=== PATIENT | female | born 1955 | race Caucasian/White ===

== ENCOUNTER 2021-05-12 06:38 | Outpatient (REF) | payer BC, SELFPAY ==
[2021-05-12 12:01] LABS: Hematocrit 39.5 % (37-47); Mean Corpuscular HGB Conc 32.9 g/dl (31.0-35.0); Mean Corpuscular Hemoglobin 30.4 pg (27.0-33.0); Mean Corpuscular Volume 92.3 fL (80-98); Mean Platelet Volume 10.4 fL (9.4-12.3); Platelet Count 344 X10*3/uL (160-400); Red Blood Count 4.28 X10*6/uL (4.20-5.50); White Blood Count 4.7 X10*3/uL (4.8-10.8)
[2021-05-12 12:13] LABS: Alanine Aminotransferase 15 U/L (0-31); Albumin Level 4.1 g/dL (3.5-5.0); Alkaline Phosphatase 53 U/L (39-117); Anion Gap 13 (12-20); Aspartate Amino Transferase 20 U/L (5-31); Bilirubin Total 0.6 mg/dL (0.0-1.0); Blood Urea Nitrogen 16 mg/dL (9-16); Calcium 9.6 mg/dL (8.4-10.2); Carbon Dioxide 27 mmol/L (22-29); Chloride 107 mmol/L (96-108); Cholesterol 253 mg/dL; Estimated Glomerular Filt Rate > 60; Glucose Fasting 100 mg/dL (60-99); HDL Cholesterol 57 mg/dL; LDL Cholesterol Calculated 166 mg/dl; Potassium 4.5 mmol/L (3.3-5.1); Sodium 142 mmol/L (135-145); Total Protein 6.8 g/dL (6.5-8.0); Triglycerides 154 mg/dL
[2021-05-12 12:34] LABS: TSH reflex Free T4 1.73 uIU/mL (0.32-4.0)
== END 2021-05-12 06:39 | disposition home or self-care (01) ==
LOC: HO.HMGCLDS 06:38
PROVIDERS: PCP Internal Medicine; Visit Provider Internal Medicine
DX: Z00.00 Encounter for general adult medical examination without abnormal findings (principal); J44.9 Chronic obstructive pulmonary disease, unspecified
CPT/HCPCS: 36415; 80053; 80061; 84443; 85027

== ENCOUNTER 2021-12-10 10:37 | Outpatient (REF) | payer BC, SELFPAY ==
[2021-12-10 12:44] LABS: TSH reflex Free T4 1.53 uIU/mL (0.32-4.0)
[2021-12-10 12:48] LABS: Alanine Aminotransferase 18 U/L (0-31); Albumin Level 4.2 g/dL (3.5-5.0); Alkaline Phosphatase 51 U/L (39-117); Anion Gap 10 (12-20); Aspartate Amino Transferase 19 U/L (5-31); Bilirubin Total 0.3 mg/dL (0.0-1.0); Blood Urea Nitrogen 18 mg/dL (9-16); Calcium 9.8 mg/dL (8.4-10.2); Carbon Dioxide 28 mmol/L (22-29); Chloride 108 mmol/L (96-108); Cholesterol 275 mg/dL; Estimated Glomerular Filt Rate > 60; Glucose Fasting 99 mg/dL (60-99); HDL Cholesterol 54 mg/dL; LDL Cholesterol Calculated 179 mg/dl; Potassium 4.6 mmol/L (3.3-5.1); Sodium 141 mmol/L (135-145); Total Protein 7.4 g/dL (6.5-8.0); Triglycerides 212 mg/dL
== END 2021-12-10 10:38 | disposition home or self-care (01) ==
LOC: HO.HMGCLDS 10:37
PROVIDERS: PCP Internal Medicine; Visit Provider Internal Medicine
DX: E78.5 Hyperlipidemia, unspecified (principal)
CPT/HCPCS: 36415; 80053; 80061; 84443

== ENCOUNTER 2022-01-17 11:51 | Outpatient (REF) | payer BC, SELFPAY ==
[2022-01-17 14:02] LABS: Hematocrit 43.2 % (37.0-47.0); Hemoglobin 14.4 g/dl (12.0-16.0); Mean Corpuscular HGB Conc 33.3 g/dl (31.0-35.0); Mean Corpuscular Hemoglobin 30.4 pg (27.0-33.0); Mean Corpuscular Volume 91.3 fL (80.0-98.0); Mean Platelet Volume 10.4 fL (9.4-12.3); Platelet Count 222 X10*3/uL (160-400); Red Blood Count 4.73 X10*6/uL (4.20-5.50); Red Cell Distribution Width 12.9 % (11.0-16.0); White Blood Count 4.2 X10*3/uL (4.8-10.8)
[2022-01-17 14:23] LABS: Alanine Aminotransferase 31 U/L (0-31); Albumin Level 3.9 g/dL (3.5-5.0); Alkaline Phosphatase 44 U/L (39-117); Anion Gap 17 (12-20); Aspartate Amino Transferase 40 U/L (5-31); Bilirubin Total 0.3 mg/dL (0.0-1.0); Blood Urea Nitrogen 15 mg/dL (9-16); C Reactive Protein 0.31 mg/dL (< or = 0.50); Calcium 9.1 mg/dL (8.4-10.2); Carbon Dioxide 21 mmol/L (22-29); Chloride 104 mmol/L (96-108); Cholesterol 236 mg/dL; Estimated Glomerular Filt Rate > 60; Glucose Random 108 mg/dL (60-115); HDL Cholesterol 45 mg/dL; LDL Cholesterol Calculated 160 mg/dl; Lipase 44 U/L (8-78); Potassium 4.6 mmol/L (3.3-5.1); Sodium 137 mmol/L (135-145); Total Protein 7.5 g/dL (6.5-8.0); Triglycerides 155 mg/dL
== END 2022-01-17 11:52 | disposition home or self-care (01) ==
LOC: HO.HMGCLDS 11:51
PROVIDERS: PCP Internal Medicine; Visit Provider Internal Medicine
DX: R10.9 Unspecified abdominal pain (principal); E78.5 Hyperlipidemia, unspecified
CPT/HCPCS: 36415; 80053; 80061; 83690; 85027; 86140

== ENCOUNTER 2022-01-22 08:20 | Outpatient (REF) | payer BC, SELFPAY ==
--- NOTE | ~2022-01-22 | US_ITS ---
EXAMINATION: US ABDOMEN COMPLETE CLINICAL INFORMATION: Abdominal pain. Rule out cholecystitis. COMPARISON: None TECHNIQUE: Real-time imaging of the abdominal viscera. FINDINGS: PANCREAS: Normal. ABDOMINAL AORTA: The proximal, mid, and distal segments are normal in caliber. INFERIOR VENA CAVA: Visualized portions are normal. LIVER: Liver echotexture is increased. The liver contour is normal. The liver is normal in size.. No focal hepatic lesion. There is no intrahepatic biliary duct dilatation seen. GALLBLADDER: The gallbladder is normal in size. There is ring down artifact from the gallbladder fundus suggestive of adenomyomatosis of the gallbladder wall. No gallstones are seen. Gallbladder wall thickness is normal. There is no pericholecystic fluid. COMMON BILE DUCT: Normal in caliber measuring 0.6 cm in diameter. RIGHT KIDNEY: Normal. No hydronephrosis. No renal calculi or focal parenchymal lesions. The kidney measures 11 cm in maximum dimension. LEFT KIDNEY: Normal. No hydronephrosis. No renal calculi or focal parenchymal lesions. The kidney measures 11.4 cm in maximum dimension. SPLEEN: Normal. The spleen measures 8.4 cm in maximum dimension. FREE FLUID: None. US/US abdomen complete IMPRESSION: Echogenic liver probably representing fatty infiltration. Adenomyomatosis of the gallbladder wall. No gallstones seen.
== END 2022-01-22 08:21 | disposition home or self-care (01) ==
LOC: HO.HMGCX 08:20
PROVIDERS: Visit Provider Internal Medicine
DX: R10.9 Unspecified abdominal pain (principal)
CPT/HCPCS: 76700

== ENCOUNTER 2022-07-12 08:10 | Outpatient (REF) | payer BC, SELFPAY ==
[2022-07-12 11:22] LABS: Appearance Urine Clear; Color Urine Yellow; Glucose Urine UA Negative (Negative); Leukocyte Esterase Urine Trace (Negative); Nitrite Urine Negative (Negative); UMIC TRIGGER UA YES; Urine Blood Small (1+) (Negative); Urine Ketones Negative (Negative); Urine Protein Negative (Neg-Trace)
[2022-07-12 11:27] LABS: MANUAL DIFF FLAG NO
[2022-07-12 11:50] LABS: Bacteria Urine None Seen (None Seen); Hyaline Casts Urine 0-2 /LPF (0-2); Squamous Epithelial Cell Urine 0-2 /HPF (0-2); WBC Urine 0-5 /HPF (0-5)
[2022-07-12 11:51] LABS: Basophils Percent Auto 0.4 % (0-2); Eosinophils Percent Auto 0.7 % (0-4); Hemoglobin 12.6 g/dl (12.0-16.0); Imm Gran Abs Auto 0.02 X10*3/uL (0.00-0.03); Imm Gran Pct Auto 0.4 % (0.0-0.4); Lymphocytes Absolute Auto 2.1 X10*3/uL (1.2-4.9); Lymphocytes Percent Auto 37.9 % (20-40); Mean Corpuscular HGB Conc 33.2 g/dl (31.0-35.0); Mean Corpuscular Hemoglobin 30.6 pg (27.0-33.0); Mean Corpuscular Volume 92.2 fL (80.0-98.0); Mean Platelet Volume 10.4 fL (9.4-12.3); Monocytes Absolute Auto 0.4 X10*3/uL (0.1-1.2); Monocytes Percent Auto 7.8 % (2-11); Neutrophils Absolute Auto 2.9 x10*3/uL (2.0-8.3); Neutrophils Percent Auto 52.8 % (45-73); Platelet Count 312 X10*3/uL (160-400); Red Blood Count 4.12 X10*6/uL (4.20-5.50); Red Cell Distribution Width 13.2 % (11.0-16.0); White Blood Count 5.5 X10*3/uL (4.8-10.8)
[2022-07-12 12:04] LABS: Alanine Aminotransferase 29 U/L (0-31); Albumin Level 4.1 g/dL (3.5-5.0); Alkaline Phosphatase 51 U/L (39-117); Anion Gap 15 (12-20); Aspartate Amino Transferase 26 U/L (5-31); Bilirubin Total 0.5 mg/dL (0.0-1.0); Blood Urea Nitrogen 17 mg/dL (9-16); Calcium 9.8 mg/dL (8.4-10.2); Carbon Dioxide 25 mmol/L (22-29); Chloride 105 mmol/L (96-108); Cholesterol 282 mg/dL; Estimated Glomerular Filt Rate > 60; Glucose Fasting 103 mg/dL (60-99); HDL Cholesterol 47 mg/dL; LDL Cholesterol Calculated 189 mg/dl; Potassium 4.5 mmol/L (3.3-5.1); Sodium 140 mmol/L (135-145); Total Protein 6.9 g/dL (6.5-8.0); Triglycerides 232 mg/dL
[2022-07-12 12:29] LABS: Vitamin D 25-OH Total 25.5 ng/mL (>30)
== END 2022-07-12 08:11 | disposition home or self-care (01) ==
LOC: HO.HMGCLDS 08:10
PROVIDERS: PCP Internal Medicine; Visit Provider Internal Medicine
DX: Z00.00 Encounter for general adult medical examination without abnormal findings (principal); E78.5 Hyperlipidemia, unspecified; J44.9 Chronic obstructive pulmonary disease, unspecified; E55.9 Vitamin D deficiency, unspecified
CPT/HCPCS: 36415; 80053; 80061; 81001; 82306; 85025

== ENCOUNTER 2022-10-04 07:34 | Outpatient (REF) | payer BC, SELFPAY ==
[2022-10-04 12:00] LABS: Cholesterol 299 mg/dL; HDL Cholesterol 41 mg/dL; LDL Cholesterol Calculated 201 mg/dl; Triglycerides 286 mg/dL
== END 2022-10-04 07:35 | disposition home or self-care (01) ==
LOC: HO.HMGCLDS 07:34
PROVIDERS: Visit Provider Internal Medicine
DX: E78.5 Hyperlipidemia, unspecified (principal)
CPT/HCPCS: 36415; 80061

== ENCOUNTER 2022-10-09 07:50 | Outpatient (REF) | payer BC, SELFPAY ==
--- NOTE | ~2022-10-09 | MM_ITS ---
EXAMINATION: MM SCREENING DIGITAL BREAST TOMOSYNTHESIS, BILATERAL CLINICAL INFORMATION: Screening. Asymptomatic. The lifetime risk of breast cancer based on the Tyrer-Cuzick Model is 7%. COMPARISON: Outside mammography: 11/10/2021, 10/21/2020, 10/02/2019 ([facility]). TECHNIQUE: Digital breast tomosynthesis is performed in both the craniocaudal and mediolateral oblique views along with computer-aided detection (CAD). Synthesized 2D images are generated from the tomosynthesis. FINDINGS: There are scattered areas of fibroglandular density (ACR BI-RADS breast composition Category b). There are no significant masses, abnormal calcifications, or other abnormalities. Breast tissue composition borders on predominantly fatty. Background stromal and fibroglandular densities are similar to outside exams. No developing density or interval architectural changes. There is an incidental intramammary node posterior upper outer right breast. MM/MM tomosynthesis screening BI IMPRESSION: No mammographic evidence of malignancy. ASSESSMENT: BI-RADS 2: Benign RECOMMENDATION: Routine annual mammography screening. This patient's information was entered into a reminder system with a target due date for their next mammogram.
== END 2022-10-09 07:51 | disposition home or self-care (01) ==
LOC: HO.MAMMO 07:50
PROVIDERS: PCP Internal Medicine; Visit Provider Internal Medicine
DX: Z12.31 Encounter for screening mammogram for malignant neoplasm of breast (principal)
CPT/HCPCS: 77063; 77067

== ENCOUNTER 2023-01-10 07:42 | Outpatient (REF) | payer BC, SELFPAY ==
[2023-01-10 11:25] LABS: MANUAL DIFF FLAG NO
[2023-01-10 11:39] LABS: Basophils Percent Auto 0.5 % (0-2); Eosinophils Absolute Auto 0.1 X10*3/uL (0.0-0.4); Eosinophils Percent Auto 1.1 % (0-4); Hematocrit 41.3 % (37.0-47.0); Hemoglobin 13.5 g/dl (12.0-16.0); Imm Gran Abs Auto 0.01 X10*3/uL (0.00-0.03); Imm Gran Pct Auto 0.2 % (0.0-0.4); Lymphocytes Absolute Auto 2.2 X10*3/uL (1.2-4.9); Lymphocytes Percent Auto 35.8 % (20-40); Mean Corpuscular HGB Conc 32.7 g/dl (31.0-35.0); Mean Corpuscular Hemoglobin 30.6 pg (27.0-33.0); Mean Corpuscular Volume 93.7 fL (80.0-98.0); Mean Platelet Volume 10.3 fL (9.4-12.3); Monocytes Absolute Auto 0.5 X10*3/uL (0.1-1.2); Monocytes Percent Auto 8.1 % (2-11); Neutrophils Absolute Auto 3.4 x10*3/uL (2.0-8.3); Neutrophils Percent Auto 54.3 % (45-73); Platelet Count 338 X10*3/uL (160-400); Red Blood Count 4.41 X10*6/uL (4.20-5.50); Red Cell Distribution Width 12.8 % (11.0-16.0); White Blood Count 6.2 X10*3/uL (4.8-10.8)
[2023-01-10 11:52] LABS: Estimated Average Glucose 111 mg/dL; Hemoglobin A1c % 5.5 %
[2023-01-10 12:39] LABS: Alanine Aminotransferase 25 U/L (0-31); Alkaline Phosphatase 56 U/L (39-117); Anion Gap 14 (12-20); Aspartate Amino Transferase 20 U/L (5-31); Bilirubin Total 0.5 mg/dL (0.0-1.0); Blood Urea Nitrogen 14 mg/dL (9-16); Calcium 9.5 mg/dL (8.4-10.2); Carbon Dioxide 25 mmol/L (22-29); Chloride 109 mmol/L (96-108); Cholesterol 289 mg/dL; Estimated Glomerular Filt Rate > 60; Glucose Fasting 110 mg/dL (60-99); HDL Cholesterol 41 mg/dL; LDL Cholesterol Calculated 183 mg/dl; Potassium 4.5 mmol/L (3.3-5.1); Sodium 143 mmol/L (135-145); Total Protein 6.8 g/dL (6.5-8.0); Triglycerides 329 mg/dL
[2023-01-10 13:03] LABS: TSH reflex Free T4 3.58 uIU/mL (0.32-4.0); Vitamin D 25-OH Total 41.8 ng/mL (>30)
== END 2023-01-10 07:43 | disposition home or self-care (01) ==
LOC: HO.HMGCLDS 07:42
PROVIDERS: PCP Internal Medicine; Visit Provider Internal Medicine
DX: Z00.00 Encounter for general adult medical examination without abnormal findings (principal); R73.9 Hyperglycemia, unspecified; E78.5 Hyperlipidemia, unspecified; E55.9 Vitamin D deficiency, unspecified
CPT/HCPCS: 36415; 80053; 80061; 82306; 83036; 84443; 85025

== ENCOUNTER 2023-04-10 06:47 | Outpatient (REF) | payer MEDICARE, SELFPAY ==
[2023-04-10 11:50] LABS: Alanine Aminotransferase 26 U/L (0-31); Albumin Level 3.8 g/dL (3.5-5.0); Alkaline Phosphatase 49 U/L (39-117); Anion Gap 13 (12-20); Aspartate Amino Transferase 20 U/L (5-31); Bilirubin Total 0.5 mg/dL (0.0-1.0); Blood Urea Nitrogen 13 mg/dL (9-16); Calcium 9.4 mg/dL (8.4-10.2); Carbon Dioxide 23 mmol/L (22-29); Chloride 110 mmol/L (96-108); Cholesterol 172 mg/dL; Estimated Glomerular Filt Rate > 60; Glucose Fasting 110 mg/dL (60-99); HDL Cholesterol 45 mg/dL; LDL Cholesterol Calculated 82 mg/dl; Potassium 4.3 mmol/L (3.3-5.1); Sodium 142 mmol/L (135-145); Triglycerides 227 mg/dL
== END 2023-04-10 06:48 | disposition home or self-care (01) ==
LOC: HO.HMGCLDS 06:47
PROVIDERS: PCP Internal Medicine; Visit Provider Internal Medicine
DX: R73.9 Hyperglycemia, unspecified (principal); E78.5 Hyperlipidemia, unspecified
CPT/HCPCS: 36415; 80053; 80061

== ENCOUNTER 2023-04-14 10:31 | Outpatient (AMB) | payer BC, SELFPAY ==
--- NOTE | 2023-04-14 10:54 | A.OFFPC_ITS ---
Vital Signs 04/14/23 10:56 Height 5 ft Weight 180 lb BMI 35.2 BP 118/74 Blood Pressure Location Lt brachial Position Sitting Pulse 75 Pulse Source Pulse Oximeter Pulse Oximetry (%) 99 Oxygen Delivery Method Room Air Intake Visit Reasons: 3 Month Follow up Hyperlipidemia Intake Note: Pt is here today for 3 months follow up visit. Pt states that her feet are swelling after starting cholesterol medication. Allergies simvastatin Adverse Reaction (Intermediate, Verified 04/14/23 10:59) myalgia crestor Adverse Reaction (Intermediate, Uncoded 04/14/23 10:59) leg swelling Medication List - Last Reconciled 04/14/23 by Ghazala Aparicio MD alirocumab (Praluent Pen) 75 mg subcut Q14D ezetimibe (Zetia) 10 mg PO DAILY simvastatin 20 mg PO DAILY Tobacco use date assessed: 04/14/23 Fall risk assessment: No Falls in past year Last assessed Fall Risk: 04/14/23 Dental Screening Dental Screen Date: 04/14/23 Did you have a dental visit in the last 12 months?: Yes Did you have a dental problem in the last 6 months where you did not have access to dental care?: No Was dental information given to patient?: Patient has dentist HPI 3 Month Follow up Hyperlipidemia HPI Details Pt presents for hyperlipid, stable on meds. Patient complains of chronic lower extremity edema. She had a venous insufficiency surgery without significant improvement. Patient denies chest pain shortness of breath palpitations. [facility] Medical History Abdominal pain Annual physical exam COPD (chronic obstructive pulmonary disease) Furunculosis Hyperlipidemia Lung nodule Mammogram normal Normal colonoscopy Normal Pap smear Varicose vein of leg Family History (Updated 01/13/23 @ 11:32 by Ana Ruiz Kwan) Father Cancer Mother No problems noted. Social History Housing: House Alcohol intake: current Alcohol intake frequency: a few times a week Patient Tobacco Use Status: Former Tobacco user e-Cigarette/Vaping Use: Never Used Second Hand Smoke Exposure: No service: No Current occupational status: employed Cognitive needs: No Hearing needs: No Vision needs: No Questionnaire Thrive Questionnaire Date Thrive assessed: 01/13/23 Currently or been in a relationship where the following occur: I choose not to answer this question AUDIT C Alcohol Use Questionnaire (AUDIT-C) 1. How often do you have a drink containing alcohol?: Monthly or less 2. How many drinks containing alcohol do you have on a typical day when you are drinking?: 1 or 2 3. How often do you have six or more drinks on one occasion?: Never Total Score: 1 CESAR-7 AMB Questionnaire CESAR-7 Date CESAR - 7 assessed: 01/13/23 Source: Developed by Drs. Jaskaran Brown, Helene June, Refugio Love and colleagues, with an educational buddy from [employer]. Review of Systems Const All systems reviewed & are unremarkable except as noted in HPI and below Reports no additional complaints Eyes Reports no additional complaints ENT Reports no additional complaints Card Reports no additional complaints Resp Reports no additional complaints GI Reports no additional complaints Physical exam (Primary Care) Vital Signs: Last Vital Signs Pulse 75 04/14/23 10:56 BP 118/74 04/14/23 10:56 Pulse Ox 99 04/14/23 10:56 Oxygen Delivery Method Room Air 04/14/23 10:56 BMI result Body Mass Index 35.2 Tobacco/Smoking Status: Tobacco use Status Tobacco use date assessed 04/14/23 04/14/23 11:05 Patient Tobacco Use Status Former Tobacco user 04/14/23 10:55 e-Cigarette/Vaping Use Never Used 04/14/23 10:55 Thrive Assessment: Date of Thrive Assessment Date Thrive assessed 01/13/23 04/14/23 10:55 Currently or been in a relationship where the following occur: I choose not to answer this question Const General: no acute distress HENMT Head: Yes normal to inspection Neck Neck: Yes supple Resp Auscultation: clear to auscultation bilaterally Cardio Rhythm: regular rhythm Heart sounds: S1 normal heart sound present and S2 normal heart sound present GI Inspection: Yes normal to inspection Palpation (GI): Soft to palpation Percussion: Yes normal to percussion Auscultation: normal bowel sounds Extrem Other: 3+ nonpitting edema bilaterally Assessment and Plan Assessment & Plan (1) Hyperglycemia: Code(s): R73.9 - Hyperglycemia, unspecified Plan: cont ADA diet, weight loss, f/u 3 mths with labs (2) Hyperlipidemia: Code(s): E78.5 - Hyperlipidemia, unspecified Plan: cont Simvatin and Zetia (3) Varicose vein of leg: Comment: s/p endovascular venous closure 2017 bilaterally Code(s): I83.90 - Asymptomatic varicose veins of unspecified lower extremity (4) Edema: Code(s): R60.9 - Edema, unspecified Plan: check ECHO , start Lasix 20 mg 2 x a week, comprression knee highs Orders: Orders B Type Natriuretic Peptide 3 Months E78.5 - Hyperlipidemia, unspecified, I83.90 - Asymptomatic varicose veins of unspecified lower extremity, R60.9 - Edema, unspecified, R73.9 - Hyperglycemia, unspecified Comprehensive [place]. Panel Fast 3 Months E78.5 - Hyperlipidemia, unspecified, I83.90 - Asymptomatic varicose veins of unspecified lower extremity, R60.9 - Edema, unspecified, R73.9 - Hyperglycemia, unspecified Hemoglobin A1c 3 Months E78.5 - Hyperlipidemia, unspecified, I83.90 - Asymptomatic varicose veins of unspecified lower extremity, R60.9 - Edema, unspecified, R73.9 - Hyperglycemia, unspecified Lipid Panel 3 Months E78.5 - Hyperlipidemia, unspecified, I83.90 - Asymptomatic varicose veins of unspecified lower extremity, R60.9 - Edema, unspecified, R73.9 - Hyperglycemia, unspecified TSH reflex Free T4 3 Months E78.5 - Hyperlipidemia, unspecified, I83.90 - Asymptomatic varicose veins of unspecified lower extremity, R60.9 - Edema, unspecified, R73.9 - Hyperglycemia, unspecified Microalbumin, Random (w Creat) 3 Months E78.5 - Hyperlipidemia, unspecified, I83.90 - Asymptomatic varicose veins of unspecified lower extremity, R60.9 - Edema, unspecified, R73.9 - Hyperglycemia, unspecified CA echo transthoracic complete Today R60.9 - Edema, unspecified Medications: New furosemide (Lasix) 20 mg PO Q OTHER DAY 30 tabs 2RF Discontinued alirocumab (Praluent Pen) Discontinued Reason: Doctor's Order 75 mg subcut Q14D 2 mL 3RF Coding Level of Care Code Est Pt Level 4 (19353) Diagnoses Hyperglycemia R73.9 Hyperlipidemia E78.5 Varicose vein of leg I83.90 Edema R60.9
[2023-04-14 10:56] VITALS: BP 118/74; PULSE 75; O2SAT 99; BMI 35.2
== END 2023-04-14 11:46 | disposition home or self-care (01) ==
PROVIDERS: Visit Provider Internal Medicine
DX: R73.9 Hyperglycemia, unspecified (principal); E78.5 Hyperlipidemia, unspecified; I83.90 Asymptomatic varicose veins of unspecified lower extremity; R60.9 Edema, unspecified
CPT/HCPCS: 99214

== ENCOUNTER → 2023-05-14 10:31 | Outpatient (REF) | payer MEDICARE, SELFPAY ==
--- NOTE | 2023-05-14 10:33 | CA_ITS ---
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 Left Ventricle Normal left ventricular size, thickness, and systolic function. The visually estimated ejection fraction is between 60-65%. Spectral Doppler is indicative of a normal filling pattern. Right Ventricle Normal right ventricular cavity size and systolic function. Atria Both atria are normal in size. Interatrial shunt cannot be excluded. Aortic Valve The aortic valve structure and function is likely normal. There is no aortic valve stenosis. There is no aortic valve regurgitation. Mitral Valve Normal mitral valve structure and function. There is trace mitral valve regurgitation. There is no mitral valve stenosis. Pulmonic Valve The pulmonic valve is likely normal. Tricuspid Valve Likely normal tricuspid valve structure and function. Tricuspid regurgitation envelope is inadequate for calculation of right ventricular systolic pressure. Normal right atrial pressure. Great Vessels All visible segments of the aorta are normal in size. The pulmonary artery was not well visualized. Venous The inferior vena cava is normal in size and collapses greater than 50% with inspiration. Pericardium/Pleural There is no evidence of pericardial effusion. Prior Study Comparison No prior study available for comparison. Measurements 2D Linear Measurements IVSd: 0.80 0.6-0.9/0.6-1.0 cm LVIDd: 4.10 3.9-5.3/4.2-5.9 cm LVIDd Index: 2.36 2.4-3.2/2.2-3.1 cm/m2 LVIDs: 2.70 2.0-3.6 cm LVPWd: 0.70 0.7-1.1 cm LA Diam: 2.60 2.7-3.8/3.0-4.0 cm LAIDs Index: 1.49 1.5-2.3 cm/m2 LV Mass: 110.96 67-162/88-224 g LV Mass Index: 63.77 43-95/49-115 g/m2 LVOT Diam: 2.10 3.0+(-)1.3 cm 2D Systolic Function EF 4C: 62.60 >55% Mitral Valve MV Pk E: 0.48 MV PK A: 0.49 MV Decel Time: 179.00 E/A: 1.00 E'Lateral: 9.14 E'Medial: 6.42 E/E' Med: 7.50 E/E' Lat: 5.30 PHT: 52.00 MVA PHT: 4.23 Decel [place]: 2.68 Aortic Valve AoV Pk Anibal: 1.39 AoV Mn Anibal: 0.97 AoV VTI: 0.29 AoV Pk Grad: 8.00 Aov Mn Grad: 4.00 KAY Cont.VTI: 1.94 LVOT LVOT Pk Anibal: 0.76 LVOT Mn Anibal: 0.54 LVOT VTI: 0.16 LVOT Pk Grad: 2.00 LVOT Mn Grad: 1.00 LVOT Diam: 2.10 LVOT Area: 3.46 Diastolic Function MV Pk E: 0.48 MV Pk A: 0.49 E/A: 1.00 E'Medial: 6.42 E/E' Med: 7.50 E' Laterial: 9.14 E/E' Lat: 5.30 Right Ventricle TAPSE (mm): 19.10 TVS' Anibal: 9.79 Tricuspid Valve RA Press: 3.00 Great Vessels Aorta Sinus of Valsalva: 3.00 2.0-3.5 cm Ao Asc: 3.10 2.1-3.4 cm Updated in Other Vendor System with Status of Final Trent Gonzales MD electronically signed on 05/14/2023 12:40:12 PM with status of Final
== END ==
LOC: HO.CARD 10:31
PROVIDERS: PCP Internal Medicine; Visit Provider Internal Medicine
DX: R60.9 Edema, unspecified (principal)
CPT/HCPCS: 93306

== ENCOUNTER → 2023-05-14 10:33 | Outpatient (BNV) | payer MEDICARE, SELFPAY | PROVIDERS: PCP Internal Medicine; Visit Provider Internal Medicine Cardiovascular Disease | DX: R60.9 Edema, unspecified (principal) | CPT/HCPCS: 93306 ==

== ENCOUNTER 2023-07-18 07:57 | Outpatient (REF) | payer MEDICARE, SELFPAY ==
[2023-07-18 11:55] LABS: Estimated Average Glucose 111 mg/dL; Hemoglobin A1c % 5.5 % (<6.0)
[2023-07-18 11:59] LABS: B Type Natriuretic Peptide 39 pg/mL (<100)
[2023-07-18 12:16] LABS: Alanine Aminotransferase 21 U/L (0-31); Alkaline Phosphatase 57 U/L (39-117); Anion Gap 12 (12-20); Aspartate Amino Transferase 25 U/L (5-31); Bilirubin Total 0.6 mg/dL (0.0-1.0); Blood Urea Nitrogen 15 mg/dL (9-16); Calcium 9.3 mg/dL (8.4-10.2); Carbon Dioxide 26 mmol/L (22-29); Chloride 109 mmol/L (96-108); Cholesterol 269 mg/dL (<200); Estimated Glomerular Filt Rate > 60; Glucose Fasting 113 mg/dL (60-99); HDL Cholesterol 52 mg/dL (>40); LDL Cholesterol Calculated 185 mg/dL (<100); Potassium 4.5 mmol/L (3.3-5.1); Sodium 142 mmol/L (135-145); Total Protein 7.2 g/dL (6.5-8.0); Triglycerides 160 mg/dL (<150)
[2023-07-18 12:31] LABS: Creatinine Urine 235.85 mg/dL; Microalbum/Creatinine Ratio Ur 5.9 ug/mg cr (<30)
== END 2023-07-18 07:58 | disposition home or self-care (01) ==
LOC: HO.HMGCLDS 07:57
PROVIDERS: PCP Internal Medicine; Visit Provider Internal Medicine
DX: R73.9 Hyperglycemia, unspecified (principal); I83.90 Asymptomatic varicose veins of unspecified lower extremity; R60.9 Edema, unspecified; E78.5 Hyperlipidemia, unspecified
CPT/HCPCS: 36415; 80053; 80061; 82043; 82570; 83036; 83880; 84443

== ENCOUNTER 2023-07-23 11:14 | Outpatient (AMB) | payer BC, SELFPAY ==
--- NOTE | 2023-07-23 11:17 | A.OFFPC_ITS ---
Vital Signs 07/23/23 11:19 Height 5 ft Weight 180 lb BMI 35.2 BP 110/80 Blood Pressure Location Lt brachial Position Sitting Pulse 79 Pulse Source Pulse Oximeter Pulse Oximetry (%) 98 Oxygen Delivery Method Room Air Intake Visit Reasons: Annual PE Allergies simvastatin Adverse Reaction (Intermediate, Verified 07/23/23 11:19) myalgia crestor Adverse Reaction (Intermediate, Uncoded 07/23/23 11:19) leg swelling Medication List - Last Reconciled 07/23/23 by Ghazala Aparicio MD ezetimibe (Zetia) 10 mg PO DAILY furosemide (Lasix) 20 mg PO Q OTHER DAY scopolamine base 1 patch transdermal Q3D PRN simvastatin 20 mg PO DAILY Tobacco use date assessed: 04/14/23 HPI Annual PE HPI Details Pt presents for PE. Patient is going on a cruise in [place] [facility] Medical History Abdominal pain Hyperlipidemia Furunculosis Annual physical exam Normal colonoscopy Mammogram normal Normal Pap smear Varicose vein of leg COPD (chronic obstructive pulmonary disease) Lung nodule Family History Father Cancer Mother No problems noted. Social History Housing: House Alcohol intake: current Alcohol intake frequency: a few times a week Patient Tobacco Use Status: Former Tobacco user e-Cigarette/Vaping Use: Never Used Second Hand Smoke Exposure: No service: No Current occupational status: employed Cognitive needs: No Hearing needs: No Vision needs: No Questionnaire Thrive Questionnaire Date Thrive assessed: 01/13/23 CESAR-7 AMB Questionnaire CESAR-7 Date CESAR - 7 assessed: 01/13/23 Source: Developed by Drs. Jaskaran Brown, Helene June, Refugio Love and colleagues, with an educational buddy from [employer]. Review of Systems Const All systems reviewed & are unremarkable except as noted in HPI and below Reports no additional complaints Eyes Reports no additional complaints ENT Reports no additional complaints Card Reports no additional complaints Resp Reports no additional complaints GI Reports no additional complaints Reports no additional complaints Physical exam (Primary Care) Vital Signs: Last Vital Signs Pulse 79 07/23/23 11:19 BP 110/80 07/23/23 11:19 Pulse Ox 98 07/23/23 11:19 Oxygen Delivery Method Room Air 07/23/23 11:19 BMI result Body Mass Index 35.2 Tobacco/Smoking Status: Tobacco use Status Tobacco use date assessed 04/14/23 07/23/23 11:18 Patient Tobacco Use Status Former Tobacco user 07/23/23 11:18 e-Cigarette/Vaping Use Never Used 07/23/23 11:18 Thrive Assessment: Date of Thrive Assessment Date Thrive assessed 01/13/23 07/23/23 11:18 Const General: no acute distress HENMT Head: Yes normal to inspection Ears: hearing grossly normal bilaterally Face and sinus: Yes normal facial exam Eyes General: appearance normal, both eyes and all related structures Neck Neck: Yes no lymphadenopathy and Yes supple Resp Effort & Inspection: normal respiratory effort Auscultation: clear to auscultation bilaterally Cardio Rhythm: regular rhythm Heart sounds: S1 normal heart sound present and S2 normal heart sound present GI Inspection: Yes normal to inspection Palpation (GI): Soft to palpation Percussion: Yes normal to percussion Auscultation: normal bowel sounds Assessment and Plan Assessment & Plan (1) Hyperglycemia: Code(s): R73.9 - Hyperglycemia, unspecified Plan: A1c is 5.5, continue ADA diet regular physical activity and follow-up in 6 months with a fasting labs including A1c (2) Hyperlipidemia: Code(s): E78.5 - Hyperlipidemia, unspecified Plan: Patient was advised to restart Zetia and simvastatin, check lipid profile in 6 months (3) Annual physical exam: Code(s): Z00.00 - Encounter for general adult medical examination without abnormal findings Plan: Well-balanced diet regular physical activity discussed with the patient . she is up-to-date with mammogram and colonoscopy Orders: Orders Complete Blood Count Auto Diff 6 Months E78.5 - Hyperlipidemia, unspecified, R73.9 - Hyperglycemia, unspecified, Z00.00 - Encounter for general adult medical examination without abnormal findings Lipid Panel 6 Months E78.5 - Hyperlipidemia, unspecified, R73.9 - Hyperglycemia, unspecified, Z00.00 - Encounter for general adult medical examination without abnormal findings Comprehensive [place]. Panel Fast 6 Months E78.5 - Hyperlipidemia, unspecified, R73.9 - Hyperglycemia, unspecified, Z00.00 - Encounter for general adult medical examination without abnormal findings Hemoglobin A1c 6 Months E78.5 - Hyperlipidemia, unspecified, R73.9 - Hyperglycemia, unspecified, Z00.00 - Encounter for general adult medical examination without abnormal findings TSH reflex Free T4 6 Months E78.5 - Hyperlipidemia, unspecified, R73.9 - Hyperglycemia, unspecified, Z00.00 - Encounter for general adult medical examination without abnormal findings Medications: New scopolamine base 1 patch transdermal Q3D PRN 4 ea 1RF nausea and vomiting Refilled ezetimibe (Zetia) 10 mg PO DAILY 90 tabs 3RF simvastatin 20 mg PO DAILY 90 tabs 3RF Coding Level of Care Code Est Pt Prev Care >65y(66237) Diagnoses Hyperglycemia R73.9 Hyperlipidemia E78.5 Annual physical exam Z00.00
[2023-07-23 11:19] VITALS: BP 110/80; PULSE 79; O2SAT 98; BMI 35.2
== END 2023-07-23 12:20 | disposition home or self-care (01) ==
PROVIDERS: Visit Provider Internal Medicine
DX: R73.9 Hyperglycemia, unspecified (principal); E78.5 Hyperlipidemia, unspecified; Z00.00 Encounter for general adult medical examination without abnormal findings
CPT/HCPCS: 99397

== ENCOUNTER 2024-01-07 10:46 | Outpatient (AMB) | payer MEDICARE, SELFPAY ==
--- NOTE | 2024-01-07 10:47 | MHC.PC.OV ---
Vital Signs 01/07/24 10:48 Height 5 ft Weight 185 lb BMI 36.1 BP 104/66 Blood Pressure Location Lt brachial Position Sitting Pulse 84 Pulse Source Pulse Oximeter Pulse Oximetry (%) 98 Oxygen Delivery Method Room Air Intake Visit Reasons: Shingles? Intake Note: Pt is here today for a sick visit. Pt c/o rash on her L side of her face that is painful. Allergies simvastatin Adverse Reaction (Intermediate, Verified 01/07/24 10:52) myalgia crestor Adverse Reaction (Intermediate, Uncoded 01/07/24 10:52) leg swelling Medication List - Last Reconciled 01/07/24 by Ghazala Aparicio MD ezetimibe (Zetia) 10 mg PO DAILY furosemide (Lasix) 20 mg PO Q OTHER DAY scopolamine base 1 patch transdermal Q3D PRN simvastatin 20 mg PO DAILY valacyclovir (Valtrex) 1,000 mg PO Q8H 10 days Tobacco use date assessed: 01/07/24 Fall risk assessment: No Falls in past year Last assessed Fall Risk: 01/07/24 Dental Screening Dental Screen Date: 01/07/24 Did you have a dental visit in the last 12 months?: Yes Did you have a dental problem in the last 6 months where you did not have access to dental care?: No Was dental information given to patient?: Patient has dentist HPI Shingles? HPI Details Patient complains of a painful rash on the left side of scalp, forehead, left side of the nose for 2 days. Patient complains of left eye irritation but denies any change in the vision. PFSH Medical History Abdominal pain Hyperlipidemia Furunculosis Annual physical exam Normal colonoscopy Mammogram normal Normal Pap smear Varicose vein of leg COPD (chronic obstructive pulmonary disease) Lung nodule Family History Father Cancer Mother No problems noted. Social History Housing: House Alcohol intake: current Alcohol intake frequency: a few times a week Patient Tobacco Use Status: Former Tobacco user e-Cigarette/Vaping Use: Never Used Second Hand Smoke Exposure: No service: No Current occupational status: employed Cognitive needs: No Hearing needs: No Vision needs: No Questionnaire Thrive Questionnaire Date Thrive assessed: 01/13/23 AUDIT C Alcohol Use Questionnaire (AUDIT-C) 1. How often do you have a drink containing alcohol?: Monthly or less 2. How many drinks containing alcohol do you have on a typical day when you are drinking?: 1 or 2 3. How often do you have six or more drinks on one occasion?: Never Total Score: 1 CESAR-7 AMB Questionnaire CESAR-7 Date CESAR - 7 assessed: 01/13/23 Source: Developed by Drs. Jaskaran Brown, Helene June, Refugio Love and colleagues, with an educational buddy from [employer]. Review of Systems Const All systems reviewed & are unremarkable except as noted in HPI and below Eyes Reports no additional complaints ENT Reports no additional complaints Card Reports no additional complaints Resp Reports no additional complaints GI Reports no additional complaints Physical exam (Primary Care) Vital Signs: Last Vital Signs Pulse 84 01/07/24 10:48 BP 104/66 01/07/24 10:48 Pulse Ox 98 01/07/24 10:48 Oxygen Delivery Method Room Air 01/07/24 10:48 BMI result Body Mass Index 36.1 Tobacco/Smoking Status: Tobacco use Status Tobacco use date assessed 01/07/24 01/07/24 10:53 Patient Tobacco Use Status Former Tobacco user 01/07/24 10:53 e-Cigarette/Vaping Use Never Used 01/07/24 10:53 Thrive Assessment: Date of Thrive Assessment Date Thrive assessed 01/13/23 01/07/24 10:53 Const General: no acute distress HENMT Other: Erythematous raised rash on the left forehead, parietal scalp, left side of the nose, injected left conjunctiva, left pupil reactive to light Mouth: Normal oral and palatal mucosa present Throat: Yes posterior oropharynx normal Neck Neck: Yes supple Resp Effort & Inspection: normal respiratory effort Auscultation: clear to auscultation bilaterally Cardio Rhythm: regular rhythm Heart sounds: S1 normal heart sound present and S2 normal heart sound present Assessment and Plan Assessment & Plan (1) Zoster: Code(s): B02.9 - Zoster without complications Plan: Valtrex 1 g Q 8 for 10 days is prescribed . patient was advised to call block handler as soon as possible for left eye examination to evaluate for the need of steroid eye drop Medications: New valacyclovir (Valtrex) 1,000 mg PO Q8H 30 tabs 0RF 10 days Coding Level of Care Code Est Pt Level 3 (53490) Diagnoses Zoster B02.9
[2024-01-07 10:48] VITALS: BP 104/66; PULSE 84; O2SAT 98; BMI 36.1
== END 2024-01-07 11:45 | disposition home or self-care (01) ==
PROVIDERS: PCP Internal Medicine; Visit Provider Internal Medicine
DX: B02.9 Zoster without complications (principal)
CPT/HCPCS: 99213

== ENCOUNTER 2024-01-09 18:08 | Emergency (ER) | payer MEDICARE, SELFPAY ==
[2024-01-09 18:16] VITALS: BP 146/84; BP 147/77; PULSE 70; PULSE 86; RESP 18; TEMP 36.8; O2SAT 97; O2SAT 98; BMI 25.7
--- NOTE | 2024-01-09 18:38 | ED.NAVMDI ---
HPI - Nausea/Vomiting/Diarrhea General Chief complaint: Nausea/Vomiting/Diarrhea Stated complaint: nausea after taking shingles meds Time Seen by Provider: 01/09/24 18:15 Source: patient and family (Son) Mode of arrival: ambulatory History of Present Illness HPI Narrative: 68-year-old female arrives for complaints of nausea, she has received an outpatient prescription for this medication but is not picked up yet, patient was diagnosed 2 days ago with herpes zoster and started on valacyclovir, she denies any rash, difficulty breathing or swallowing but reports that she is having intermittent blurry vision in the left eye and reports that she did follow-up with the eye doctor who did not dilate her eye but did perform a slit-lamp examination and started her on steroid eyedrops. Related Data Previous Rx's ?Medication ?Instructions ?Recorded furosemide 20 mg tablet (Lasix) 20 mg PO Q OTHER DAY #30 tabs 04/14/23 scopolamine base 1 mg over 3 days 1 patch transdermal Q3D PRN nausea 07/23/23 transdermal patch and vomiting #4 ea simvastatin 20 mg tablet 20 mg PO DAILY #90 tabs 07/23/23 ezetimibe 10 mg tablet (Zetia) 10 mg PO DAILY #90 tabs 12/30/23 valacyclovir 1 gram tablet 1,000 mg PO Q8H 10 days #30 tabs 01/07/24 (Valtrex) ondansetron HCl 4 mg tablet 4 mg PO BID PRN nausea and 01/09/24 vomiting #10 tabs Allergies Allergy/AdvReac Type Severity Reaction Status Date / Time simvastatin AdvReac Intermediate myalgia Verified 01/09/24 18:19 crestor AdvReac Intermediate leg Uncoded 01/07/24 10:52 swelling Review of Systems Review of Systems: Pertinent positives and negatives as stated in HPI PMFSH Past Medical History Source: nursing notes reviewed Medical History Abdominal pain Hyperlipidemia Furunculosis Annual physical exam Normal colonoscopy Mammogram normal Normal Pap smear Varicose vein of leg COPD (chronic obstructive pulmonary disease) Lung nodule Family History Family History Father Cancer Mother No problems noted. Social History Social History Housing: House Alcohol intake: current Alcohol intake frequency: a few times a week Patient Tobacco Use Status: Former Tobacco user e-Cigarette/Vaping Use: Never Used Second Hand Smoke Exposure: No Advance Directives: No Advance Directives Information Provided: No Do you have a plan to hurt others: No Plan service: No Current occupational status: employed Cognitive needs: No Hearing needs: No Vision needs: No Physical Exam Vital Signs: Vital Signs: Last Vital Signs Temp 98.1 F 01/09/24 20:39 Pulse 66 01/09/24 20:39 Resp 18 01/09/24 20:39 BP 150/72 H 01/09/24 20:39 Pulse Ox 97 01/09/24 20:39 O2 Del Method Room Air 01/09/24 20:39 BMI result Body Mass Index 25.7 VITAL SIGNS: Reviewed. GENERAL: Well developed, well nourished, in no acute distress. HEAD: Normocephalic/noted rash to V1 distribution of scalp/forehead/bridge of nose EYES: PERRLA, EOMI, there is mild edema noted to the upper/lower eyelid with conjunctival injection VISUAL ACUITY: BOTH-20/70, OD-20/50, OS-20/50 IOP: Patient adamantly refuses FLUORESCEIN STAIN: THERE IS NO UPTAKE EARS: Ext canals without abnormality NOSE: Nares patent bilateral OROPHARYNX: no oral lesions noted, posterior pharynx clear NECK: Supple, no adenopathy LUNGS: Normal breath sounds. No adventitious sounds or accessory muscle use. CARDIOVASCULAR: Regular rate and rhythm without noted murmurs ABDOMEN: Soft, non-tender, non-distended with bowel sounds. MUSCULOSKELETAL: No tenderness, deformities, or effusions noted on gross inspection. EXTREMITIES: No cyanosis, clubbing or edema. SKIN: Inspection of the skin reveals no rashes NEUROLOGIC: Alert and oriented x 4. Strength and sensation to light touch were grossly intact x 4. Medications Administered Discontinued Medications Generic Name Dose Route Start Last Admin Trade Name Freq PRN Reason Stop Dose Admin Acetaminophen 650 mg 01/09/24 20:11 01/09/24 20:18 Acetaminophen 325 Mg Tablet PO 01/09/24 20:12 650 mg ONCE ONE Administration Fluorescein Sodium 1 strip 01/09/24 18:45 01/09/24 19:05 Fluorescein Sodium Strip EYE-LEFT 05/03/24 18:46 1 strip ONCE ONE Administration Ondansetron HCl 4 mg 01/09/24 18:35 01/09/24 19:21 Ondansetron Odt 4 Mg Tab.Andrew TIMMONS 01/09/24 18:36 4 mg ONCE ONE Administration Medical Decision Making Medical Decision Making [facility] Narrative: 68-year-old female who has nausea that she feels is associated with medication for the herpes zoster although she has not taken any of the antinausea medication that she was prescribed today. The eye doctor that she saw has started her on steroid eyedrops, she adamantly refuses assessment for intra-ocular pressure, fluorescein exam does not show uptake, patient received Zofran and on re-evaluation reports improvement of her nausea, she was instructed to continue the shingles medication every 8 hours and given instructions on taking the antinausea medication prior to the scheduled times. She was also instructed to follow-up with her eye doctor for re-evaluation. I briefly discussed the case with Dr. Coffey who pointed out that the nausea could be associated with increase in intra-ocular pressure that patient adamantly refused to have completed. Therefore, in lieu complete examination are recommendation is for her to follow-up with her eye doctor within the next 24-48 hours. There is no evidence to suggest an allergic reaction. Differential Diagnosis Differential Diagnoses: The differential diagnosis associated with the presentation includes Please see the discussion above Admission/Observation Consideration of admission/observation: Escalation of care including admission/observation considered Please see the discussion above Consult Healthcare Provider Management of the patient was discussed with: Bottled Beverage Inspector Please see the discussion above Critical Care Time Critical Care Time Critical Care Time: Yes Total Critical Care Time: 30 Attestation: I personally attest to this time spent taking care of the patient. Discharge Plan Discharge Clinical Impression: Herpes zoster Patient Disposition: Home, Self-Care Instructions: Shingles (ED) Additional Instructions: 1. Resume all home medications as prescribed. 2. I recommend that you use the nausea medication approximately 30 minutes prior to the shingles medication, you should resume the 3 times a day regimen for the shingles medication (Valtrex/valacyclovir). 3. You need to follow-up with your eye doctor within the next 1-2 days. Please get your eye re-evaluated at that time. Return to the ER for any worsening symptoms. Prescriptions: No Action ezetimibe [Zetia] 10 mg tablet 10 mg PO DAILY Qty: 90 3RF ondansetron HCl 4 mg tablet 4 mg PO BID PRN (Reason: nausea and vomiting) Qty: 10 0RF furosemide [Lasix] 20 mg tablet 20 mg PO Q OTHER DAY Qty: 30 2RF scopolamine base 1 mg over 3 days patch 3 day 1 patch transdermal Q3D PRN (Reason: nausea and vomiting) Qty: 4 1RF simvastatin 20 mg tablet 20 mg PO DAILY Qty: 90 3RF valacyclovir [Valtrex] 1 gram tablet 1,000 mg PO Q8H 10 Days Qty: 30 0RF Referrals: Ghazala Aparicio MD [Primary Care Provider] - Interventions: ED Discharge Assessment Last Done: 01/09/24 20:39 Discharge Date/Time: 01/09/24 20:40 Print Language: Bulgarian
[2024-01-09] MEDS: Fluorescein Sodium STRIP 1 STRIP EYE-LEFT (19:05)
[2024-01-09 19:21] VITALS: BP 150/72; PULSE 66; RESP 18; TEMP 36.7; O2SAT 97
[2024-01-09] MEDS: Ondansetron ODT 4 MG TAB.RAPDIS TRANSLINGU (19:21)
--- NOTE | 2024-01-09 20:11 | PC.NURSE ---
Patient reports nausea has imporved. asking for tylenol for headache
[2024-01-09] MEDS: Acetaminophen 325 MG TABLET 650 MG PO (20:18)
[2024-01-09 20:39] VITALS: BP 150/72; PULSE 66; RESP 18; TEMP 36.7; O2SAT 97
== END 2024-01-09 20:40 | disposition home or self-care (01) ==
PROVIDERS: Emergency Provider Student in an Organized Health Care Education/Training Program; PCP Internal Medicine
DX: B02.9 Zoster without complications (principal); J44.9 Chronic obstructive pulmonary disease, unspecified
CPT/HCPCS: 99283

== ENCOUNTER 2024-01-19 06:22 | Outpatient (REF) | payer MEDICARE, SELFPAY | END 2024-01-19 06:23 | disposition home or self-care (01) | LOC: HO.HMGCLDS 06:22 | PROVIDERS: PCP Internal Medicine; Visit Provider Internal Medicine | DX: Z13.89 Encounter for screening for other disorder (principal) ==

== ENCOUNTER 2024-01-19 06:26 | Outpatient (REF) | payer MEDICARE, SELFPAY ==
[2024-01-19 10:13] LABS: MANUAL DIFF FLAG NO
[2024-01-19 10:30] LABS: Basophils Percent Auto 0.5 % (0-2); Eosinophils Absolute Auto 0.1 X10*3/uL (0.0-0.4); Eosinophils Percent Auto 0.8 % (0-4); Hematocrit 39.7 % (37.0-47.0); Hemoglobin 13.1 g/dl (12.0-16.0); Imm Gran Abs Auto 0.01 X10*3/uL (0.00-0.03); Imm Gran Pct Auto 0.2 % (0.0-0.4); Lymphocytes Absolute Auto 2.3 X10*3/uL (1.2-4.9); Mean Corpuscular Hemoglobin 30.5 pg (27.0-33.0); Mean Corpuscular Volume 92.3 fL (80.0-98.0); Mean Platelet Volume 9.9 fL (9.4-12.3); Monocytes Absolute Auto 0.5 X10*3/uL (0.1-1.2); Monocytes Percent Auto 7.9 % (2-11); Neutrophils Absolute Auto 3.5 x10*3/uL (2.0-8.3); Neutrophils Percent Auto 54.6 % (45-73); Platelet Count 367 X10*3/uL (160-400); Red Cell Distribution Width 13.2 % (11.0-16.0); White Blood Count 6.4 X10*3/uL (4.8-10.8)
[2024-01-19 10:40] LABS: Estimated Average Glucose 123 mg/dL; Hemoglobin A1c % 5.9 % (<6.0)
[2024-01-19 11:01] LABS: Alanine Aminotransferase 18 U/L (0-31); Albumin Level 3.8 g/dL (3.5-5.0); Alkaline Phosphatase 48 U/L (39-117); Anion Gap 16 (12-20); Aspartate Amino Transferase 17 U/L (5-31); Bilirubin Total 0.3 mg/dL (0.0-1.0); Blood Urea Nitrogen 10 mg/dL (9-16); Calcium 9.3 mg/dL (8.4-10.2); Carbon Dioxide 26 mmol/L (22-29); Chloride 105 mmol/L (96-108); Cholesterol 152 mg/dL (<200); Estimated Glomerular Filt Rate > 60; Glucose Fasting 113 mg/dL (60-99); HDL Cholesterol 51 mg/dL (>40); LDL Cholesterol Calculated 81 mg/dL (<100); Potassium 4.5 mmol/L (3.3-5.1); Sodium 142 mmol/L (135-145); Triglycerides 101 mg/dL (<150)
[2024-01-19 11:18] LABS: TSH reflex Free T4 1.48 uIU/mL (0.32-4.0)
== END 2024-01-19 06:27 | disposition home or self-care (01) ==
LOC: HO.CHCLDS 06:26
PROVIDERS: Visit Provider Internal Medicine
DX: Z00.00 Encounter for general adult medical examination without abnormal findings (principal); R73.9 Hyperglycemia, unspecified; E78.5 Hyperlipidemia, unspecified
CPT/HCPCS: 36415; 80053; 80061; 83036; 84443; 85025

== ENCOUNTER 2024-01-21 09:22 | Outpatient (AMB) | payer MEDICARE, SELFPAY ==
[2024-01-21 10:29] VITALS: BP 110/68; PULSE 81; O2SAT 98; BMI 35.5
--- NOTE | 2024-01-21 10:29 | A.OFFPC_ITS ---
Vital Signs 01/21/24 10:29 Height 5 ft Weight 182 lb BMI 35.5 BP 110/68 Blood Pressure Location Rt brachial Position Sitting Pulse 81 Pulse Source Pulse Oximeter Pulse Oximetry (%) 98 Oxygen Delivery Method Room Air Intake Visit Reasons: 6 Month F/U Intake Note: Pt is here today for 6 months follow up visit on labs. Allergies simvastatin Adverse Reaction (Intermediate, Verified 01/21/24 10:30) myalgia crestor Adverse Reaction (Intermediate, Uncoded 01/21/24 10:30) leg swelling Medication List - Last Reconciled 01/21/24 by Ghazala Aparicio MD ezetimibe (Zetia) 10 mg PO DAILY furosemide (Lasix) 20 mg PO Q OTHER DAY scopolamine base 1 patch transdermal Q3D PRN simvastatin 20 mg PO DAILY Tobacco use date assessed: 01/21/24 Dental Screening Dental Screen Date: 01/07/24 HPI 6 Month F/U HPI Details Patient presents for the follow-up on hyperlipidemia and hyperglycemia diet controlled. She would recovered from episode of herpes zoster. [facility] Medical History Abdominal pain Hyperlipidemia Furunculosis Annual physical exam Normal colonoscopy Mammogram normal Normal Pap smear Varicose vein of leg COPD (chronic obstructive pulmonary disease) Lung nodule Family History Father Cancer Mother No problems noted. Social History Housing: House Alcohol intake: current Alcohol intake frequency: a few times a week Patient Tobacco Use Status: Former Tobacco user e-Cigarette/Vaping Use: Never Used Second Hand Smoke Exposure: No service: No Current occupational status: employed Cognitive needs: No Hearing needs: No Vision needs: No Questionnaire PHQ-9 Over the last 2 weeks, how often have you been bothered by any of the following problems? 1. Little interest or pleasure in doing things: not at all 2. Feeling down, depressed, or hopeless: not at all 3. Trouble falling or staying asleep, or sleeping too much: not at all 4. Feeling tired or having little energy: not at all 5. Poor appetite or overeating: not at all 6. Feeling bad about yourself - or that you are a failure or have let yourself or your family down: not at all 7. Trouble concentrating on things, such as reading the newspaper or watching television: not at all 8. Moving or speaking so slowly that other people could have noticed. Or the opposite - being so fidgety or restless that you have been moving around a lot more than usual: not at all 9. Thoughts that you would be better off or of hurting yourself in some way: not at all Total score: 0 Depression Screening Interpretation: Negative Depression Screening Done: Yes Source: Developed by Drs. Jaskaran Brown, Helene June, Refugio Love and colleagues, with an educational buddy from [email or web address]. Thrive Questionnaire Date Thrive assessed: 01/21/24 I am a: Patient What is your living situation today?: I have a steady place to live Within the past 12 months, did the food you bought not last and you didn't have the money to get more?: Never true Within the past 12 months, did you worry whether your food would run out before you got money to buy more?: Never true Do you have trouble paying for medicines?: No Do you have trouble getting transportation to medical appointments?: No Do you have trouble paying your heating and electricity bill?: No Do you have trouble taking care of your child, family member or friend?: No Do you have trouble with day-to-day activities such as bathing, preparing meals, shopping, managing finances, etc.?: No Are you currently unemployed and looking for a job?: No Are you interested in more education?: No Please select the resources that you would like help with: None THRIVE Score: 0 CESAR-7 AMB Questionnaire CESAR-7 Date CESAR - 7 assessed: 01/21/24 Feeling nervous, anxious, or on edge: 0 = Not at all Not being able to stop or control worryin = Not at all Worrying too much about different things: 0 = Not at all Trouble relaxin = Not at all Being so restless that it is hard to sit still: 0 = Not at all Becoming easily annoyed or irritable: 0 = Not at all Feeling afraid as if something awful might happen: 0 = Not at all Total CESAR-7 score (0-4 normal; 5-9 mild; 10-14 moderate; 15-21 severe): 0 Source: Developed by Drs. Jaskaran Brown, Helene June, Refugio Love and colleagues, with an educational buddy from [email or web address]. Review of Systems Const All systems reviewed & are unremarkable except as noted in HPI and below ENT Reports no additional complaints Card Reports no additional complaints Resp Reports no additional complaints GI Reports no additional complaints Reports no additional complaints Physical exam (Primary Care) Vital Signs: Last Vital Signs Pulse 81 01/21/24 10:29 BP 110/68 01/21/24 10:29 Pulse Ox 98 01/21/24 10:29 Oxygen Delivery Method Room Air 01/21/24 10:29 BMI result Body Mass Index 35.5 Tobacco/Smoking Status: Tobacco use Status Tobacco use date assessed 01/21/24 01/21/24 10:31 Patient Tobacco Use Status Former Tobacco user 01/21/24 10:29 e-Cigarette/Vaping Use Never Used 01/21/24 10:29 PHQ-9: PHQ-9 Score PHQ-9: Total score 0 01/21/24 11:03 Depression Screening Interpretation: Negative Thrive Assessment: Date of Thrive Assessment Date Thrive assessed 01/21/24 01/21/24 10:59 Const General: no acute distress HENMT Head: Yes normal to inspection Resp Effort & Inspection: normal respiratory effort Auscultation: clear to auscultation bilaterally Cardio Rhythm: regular rhythm Heart sounds: S1 normal heart sound present and S2 normal heart sound present GI Inspection: Yes normal to inspection Palpation (GI): Soft to palpation Percussion: Yes normal to percussion Assessment and Plan Assessment & Plan (1) Hyperglycemia: Code(s): R73.9 - Hyperglycemia, unspecified Plan: A1C 5.9, ADA diet increase exercise weight loss discussed with the patient follow-up in 6 months with the fasting blood work before (2) Vitamin D deficiency: Code(s): E55.9 - Vitamin D deficiency, unspecified Plan: Continue vitamin-D supplement (3) Hyperlipidemia: Code(s): E78.5 - Hyperlipidemia, unspecified Plan: Continue current medications Orders: Orders MM screening mammo BI Today Z12.31 - Encounter for screening mammogram for malignant neoplasm of breast Comprehensive [place]. Panel Fast 6 Months E55.9 - Vitamin D deficiency, unspecified, E78.5 - Hyperlipidemia, unspecified, R73.9 - Hyperglycemia, unspecified Complete Blood Count Auto Diff 6 Months E55.9 - Vitamin D deficiency, unspecified, E78.5 - Hyperlipidemia, unspecified, R73.9 - Hyperglycemia, unspecified Lipid Panel 6 Months E55.9 - Vitamin D deficiency, unspecified, E78.5 - Hyperlipidemia, unspecified, R73.9 - Hyperglycemia, unspecified Hemoglobin A1c 6 Months E55.9 - Vitamin D deficiency, unspecified, E78.5 - Hyperlipidemia, unspecified, R73.9 - Hyperglycemia, unspecified TSH reflex Free T4 6 Months E55.9 - Vitamin D deficiency, unspecified, E78.5 - Hyperlipidemia, unspecified, R73.9 - Hyperglycemia, unspecified Microalbumin, Random (w Creat) 6 Months E55.9 - Vitamin D deficiency, unspecified, E78.5 - Hyperlipidemia, unspecified, R73.9 - Hyperglycemia, unspecified Medications: Discontinued ondansetron HCl Discontinued Reason: Doctor's Order 4 mg PO BID PRN 10 tabs 0RF nausea and vomiting valacyclovir (Valtrex) Discontinued Reason: Doctor's Order 1,000 mg PO Q8H 10 days 30 tabs 0RF Coding Level of Care Code Est Pt Level 4 (16379) Diagnoses Hyperglycemia R73.9 Vitamin D deficiency E55.9 Hyperlipidemia E78.5
== END 2024-01-21 11:33 | disposition home or self-care (01) ==
PROVIDERS: PCP Internal Medicine; Visit Provider Internal Medicine
DX: R73.9 Hyperglycemia, unspecified (principal); E55.9 Vitamin D deficiency, unspecified; E78.5 Hyperlipidemia, unspecified
CPT/HCPCS: 99214

== ENCOUNTER 2024-02-10 13:11 | Outpatient (REF) | payer MEDICARE, SELFPAY | END 2024-02-10 13:12 | disposition home or self-care (01) | LOC: HO.MAMMO 13:11 | PROVIDERS: PCP Internal Medicine; Visit Provider Internal Medicine | DX: Z12.31 Encounter for screening mammogram for malignant neoplasm of breast (principal) | CPT/HCPCS: 77063; 77067 ==

== ENCOUNTER → 2024-02-10 13:45 | Outpatient (BNV) | payer MEDICARE, SELFPAY | PROVIDERS: PCP Internal Medicine; Visit Provider Radiology Diagnostic Radiology | DX: Z12.31 Encounter for screening mammogram for malignant neoplasm of breast (principal) | CPT/HCPCS: 77063; 77067 ==

== ENCOUNTER 2024-07-23 06:44 | Outpatient (REF) | payer MEDICARE, SELFPAY ==
[2024-07-23 10:07] LABS: MANUAL DIFF FLAG NO
[2024-07-23 10:12] LABS: Basophils Percent Auto 0.3 % (0-2); Eosinophils Percent Auto 0.5 % (0-4); Hematocrit 41.2 % (37.0-47.0); Hemoglobin 13.5 g/dl (12.0-16.0); Imm Gran Abs Auto 0.02 X10*3/uL (0.00-0.03); Imm Gran Pct Auto 0.3 % (0.0-0.4); Lymphocytes Absolute Auto 1.6 X10*3/uL (1.2-4.9); Lymphocytes Percent Auto 20.5 % (20-40); Mean Corpuscular HGB Conc 32.8 g/dl (31.0-35.0); Mean Corpuscular Hemoglobin 30.8 pg (27.0-33.0); Mean Corpuscular Volume 93.8 fL (80.0-98.0); Mean Platelet Volume 10.2 fL (9.4-12.3); Monocytes Absolute Auto 0.6 X10*3/uL (0.1-1.2); Monocytes Percent Auto 7.7 % (2-11); Neutrophils Absolute Auto 5.4 x10*3/uL (2.0-8.3); Neutrophils Percent Auto 70.7 % (45-73); Platelet Count 320 X10*3/uL (160-400); Red Blood Count 4.39 X10*6/uL (4.20-5.50); Red Cell Distribution Width 12.8 % (11.0-16.0); White Blood Count 7.6 X10*3/uL (4.8-10.8)
[2024-07-23 10:55] LABS: Alanine Aminotransferase 22 U/L (0-31); Albumin Level 3.9 g/dL (3.5-5.0); Alkaline Phosphatase 50 U/L (39-117); Anion Gap 9 (12-20); Aspartate Amino Transferase 27 U/L (5-31); Bilirubin Total 0.5 mg/dL (0.0-1.0); Blood Urea Nitrogen 11 mg/dL (9-16); Calcium 8.8 mg/dL (8.4-10.2); Carbon Dioxide 26 mmol/L (22-29); Chloride 107 mmol/L (96-108); Cholesterol 170 mg/dL (<200); Estimated Average Glucose 117 mg/dL; Estimated Glomerular Filt Rate > 60; Glucose Fasting 115 mg/dL (60-99); HDL Cholesterol 51 mg/dL (>40); Hemoglobin A1C 212.3844 umol/L; Hemoglobin A1c % 5.7 % (<6.0); LDL Cholesterol Calculated 89 mg/dL (<100); Potassium 4.2 mmol/L (3.3-5.1); Sodium 138 mmol/L (135-145); TSH reflex Free T4 1.61 uIU/mL (0.32-4.0); Total Hemoglobin (HGBA1C) 5545.3182 umol/L; Triglycerides 152 mg/dL (<150)
[2024-07-23 11:09] LABS: Creatinine Urine 216.83 mg/dL; Microalbum/Creatinine Ratio Ur 12.4 ug/mg cr (<30)
== END 2024-07-23 06:45 | disposition home or self-care (01) ==
LOC: HO.HMGCLDS 06:44
PROVIDERS: PCP Internal Medicine; Visit Provider Internal Medicine
DX: R73.9 Hyperglycemia, unspecified (principal); E55.9 Vitamin D deficiency, unspecified; E78.5 Hyperlipidemia, unspecified
CPT/HCPCS: 36415; 80053; 80061; 82043; 82570; 83036; 84443; 85025

== ENCOUNTER 2024-08-17 12:57 | Outpatient (AMB) | payer MEDICARE, SELFPAY ==
--- NOTE | 2024-08-17 13:02 | MHC.PC.OV ---
Vital Signs 08/17/24 13:16 Height 5 ft Weight 172 lb BMI 33.6 BP 110/68 Blood Pressure Location Lt brachial Position Sitting Pulse 86 Pulse Source Pulse Oximeter Pulse Oximetry (%) 97 Oxygen Delivery Method Room Air Intake Visit Reasons: Annual PE Intake Note: Pt is here today for PE. Pt needs a refill on Simvastatin. Allergies simvastatin Adverse Reaction (Intermediate, Verified 08/17/24 13:17) myalgia crestor Adverse Reaction (Intermediate, Uncoded 08/17/24 13:17) leg swelling Medication List - Last Reconciled 08/17/24 by Ghazala Aparicio MD ezetimibe (Zetia) 10 mg PO DAILY furosemide (Lasix) 20 mg PO Q OTHER DAY scopolamine base 1 patch transdermal Q3D PRN simvastatin 20 mg PO DAILY Tobacco use date assessed: 08/17/24 Fall risk assessment: No Falls in past year Last assessed Fall Risk: 08/17/24 Dental Screening Dental Screen Date: 01/07/24 HPI Annual PE HPI Details Pt presents for PE. PFSH Medical History (Updated 08/17/24 @ 14:45 by Ghazala Aparicio MD) Abdominal pain Hyperlipidemia Furunculosis Annual physical exam Normal colonoscopy Mammogram normal Normal Pap smear Varicose vein of leg COPD (chronic obstructive pulmonary disease) Lung nodule Family History Father Cancer Mother No problems noted. Social History Housing: House Alcohol intake: current Alcohol intake frequency: a few times a week Patient Tobacco Use Status: Former Tobacco user e-Cigarette/Vaping Use: Never Used Second Hand Smoke Exposure: No service: No Current occupational status: employed Cognitive needs: No Hearing needs: No Vision needs: No Questionnaire Thrive Questionnaire Date Thrive assessed: 01/21/24 CESAR-7 AMB Questionnaire CESAR-7 Date CESAR - 7 assessed: 01/21/24 Source: Developed by Drs. Jaskaran Brown, Helene June, Refugio Love and colleagues, with an educational buddy from [email or web address]. Review of Systems Const All systems reviewed & are unremarkable except as noted in HPI and below Eyes Reports no additional complaints ENT Reports no additional complaints Card Reports no additional complaints Resp Reports no additional complaints GI Reports no additional complaints Reports no additional complaints Physical exam (Primary Care) Vital Signs: Last Vital Signs Pulse 86 08/17/24 13:16 BP 110/68 08/17/24 13:16 Pulse Ox 97 08/17/24 13:16 Oxygen Delivery Method Room Air 08/17/24 13:16 BMI result Body Mass Index 33.6 Tobacco/Smoking Status: Tobacco use Status Tobacco use date assessed 08/17/24 08/17/24 13:17 Patient Tobacco Use Status Former Tobacco user 08/17/24 13:02 e-Cigarette/Vaping Use Never Used 08/17/24 13:02 Thrive Assessment: Date of Thrive Assessment Date Thrive assessed 01/21/24 08/17/24 13:02 Const General: no acute distress HENMT Head: Yes normal to inspection Ears: hearing grossly normal bilaterally General nose exam: Normal external nose present Face and sinus: Yes normal facial exam Mouth: Normal oral and palatal mucosa present Throat: Yes posterior oropharynx normal Eyes General: appearance normal, both eyes and all related structures Neck Neck: Yes supple Thyroid: diffusely enlarged Resp Effort & Inspection: normal respiratory effort Auscultation: clear to auscultation bilaterally Cardio Rhythm: regular rhythm Heart sounds: S1 normal heart sound present and S2 normal heart sound present GI Inspection: Yes normal to inspection Palpation (GI): Soft to palpation Percussion: Yes normal to percussion Auscultation: normal bowel sounds Coding Level of Care Code Est Pt Prev Care >65y(08331) Diagnoses Positive colorectal cancer screening using Cologuard test R19.5 Thyroid nodule E04.1 COPD (chronic obstructive pulmonary disease) J44.9 Annual physical exam Z00.00 Mammogram normal Hyperlipidemia E78.5 Hyperglycemia R73.9 Assessment & Plan Assessment & Plan (1) Positive colorectal cancer screening using Cologuard test: Code(s): R19.5 - Other fecal abnormalities Category: Medical Plan: Referred to GI for colonoscopy (2) Thyroid nodule: Comment: History of thyroid nodules>10 yrs Code(s): E04.1 - Nontoxic single thyroid nodule Category: Medical Plan: Obtain thyroid ultrasound to evaluate (3) COPD (chronic obstructive pulmonary disease): Comment: Mild, albuterol p.r.n. Code(s): J44.9 - Chronic obstructive pulmonary disease, unspecified Category: Medical Plan: Albuterol p.r.n. (4) Annual physical exam: Code(s): Z00.00 - Encounter for general adult medical examination without abnormal findings Category: Medical Plan: Well-balanced diet regular physical activity discussed with the patient (5) Mammogram normal: Comment: 10/2020 [place] Category: Medical Plan: Referred for mammogram (6) Hyperlipidemia: Code(s): E78.5 - Hyperlipidemia, unspecified Category: Medical Plan: Continue current medications (7) Hyperglycemia: Code(s): R73.9 - Hyperglycemia, unspecified Category: Medical Plan: A1c is 5.7, continue ADA diet regular physical activity Orders: Orders Complete Blood Count Auto Diff 1 Year E04.1 - Nontoxic single thyroid nodule, E78.5 - Hyperlipidemia, unspecified, R73.9 - Hyperglycemia, unspecified, Z00.00 - Encounter for general adult medical examination without abnormal findings Lipid Panel 1 Year E04.1 - Nontoxic single thyroid nodule, E78.5 - Hyperlipidemia, unspecified, R73.9 - Hyperglycemia, unspecified, Z00.00 - Encounter for general adult medical examination without abnormal findings US thyroid Today E04.1 - Nontoxic single thyroid nodule Comprehensive [place]. Panel Fast 1 Year E04.1 - Nontoxic single thyroid nodule, E78.5 - Hyperlipidemia, unspecified, R73.9 - Hyperglycemia, unspecified, Z00.00 - Encounter for general adult medical examination without abnormal findings Hemoglobin A1c 1 Year E04.1 - Nontoxic single thyroid nodule, E78.5 - Hyperlipidemia, unspecified, R73.9 - Hyperglycemia, unspecified, Z00.00 - Encounter for general adult medical examination without abnormal findings Microalbumin, Random (w Creat) 1 Year E04.1 - Nontoxic single thyroid nodule, E78.5 - Hyperlipidemia, unspecified, R73.9 - Hyperglycemia, unspecified, Z00.00 - Encounter for general adult medical examination without abnormal findings TSH reflex Free T4 1 Year E04.1 - Nontoxic single thyroid nodule, E78.5 - Hyperlipidemia, unspecified, R73.9 - Hyperglycemia, unspecified, Z00.00 - Encounter for general adult medical examination without abnormal findings Referrals Gastroenterology Referral R19.5 - Other fecal abnormalities Medications: Refilled ezetimibe (Zetia) 10 mg PO DAILY 90 tabs 3RF simvastatin 20 mg PO DAILY 90 tabs 3RF
[2024-08-17 13:16] VITALS: BP 110/68; PULSE 86; O2SAT 97; BMI 33.6
== END 2024-08-17 13:44 | disposition home or self-care (01) ==
PROVIDERS: PCP Internal Medicine; Visit Provider Internal Medicine
DX: R19.5 Other fecal abnormalities (principal); E04.1 Nontoxic single thyroid nodule; J44.9 Chronic obstructive pulmonary disease, unspecified; Z00.00 Encounter for general adult medical examination without abnormal findings; E78.5 Hyperlipidemia, unspecified; R73.9 Hyperglycemia, unspecified

== ENCOUNTER → 2024-08-17 12:57 | Outpatient (BNVA) | payer MEDICARE, SELFPAY | PROVIDERS: PCP Internal Medicine; Visit Provider Internal Medicine | DX: Z00.00 Encounter for general adult medical examination without abnormal findings (principal); R19.5 Other fecal abnormalities; E04.1 Nontoxic single thyroid nodule; J44.9 Chronic obstructive pulmonary disease, unspecified; E78.5 Hyperlipidemia, unspecified; R73.9 Hyperglycemia, unspecified | CPT/HCPCS: 99397 ==

== ENCOUNTER 2024-08-23 14:13 | Outpatient (REF) | payer MEDICARE, SELFPAY ==
--- NOTE | ~2024-08-23 | US_ITS ---
EXAMINATION: US THYROID CLINICAL INFORMATION: Goiter, no priors, no history of prior biopsy. COMPARISON: None available. TECHNIQUE: Linear transducer grayscale and color Doppler examination with attention to the region of the thyroid. FINDINGS: SIZE: Measurements of the thyroid lobes and nodules are given in sagittal, anteroposterior and transverse dimensions respectively. Right Thyroid Lobe: 5.0 x 1.3 x 1.6 cm, volume 5.5 mL. Parenchyma: The gland echotexture is homogeneous. Thyroid vascularity is normal. Left Thyroid Lobe: 3.9 x 1.0 x 1.4 cm, volume 2.9 mL. Parenchyma: The gland echotexture is homogeneous. Thyroid vascularity is normal. Isthmus: 0.2 cm in maximum AP dimension. Estimated total number of nodules greater than or equal to 1 cm: 0. Job Developer nodules are described as follows: 1. Location: Right mid to upper. Size: 0.7 x 0.4 x 0.6 cm, volume 0.09 mL. Nodule characteristics: Composition: Solid (2). Echogenicity: Hypoechoic (2). Shape: Not taller than wide (0). Margins: Smooth (0). Echogenic Foci: None (0). ACR TI-RADS total points: 4. ACR TI-RADS category: 4. NODES: No lymphadenopathy is seen in the tissue surrounding the thyroid gland. US/US thyroid IMPRESSION: 0.7 cm right TR4 thyroid nodule. This study was presented today to August 24, 2024 for interpretation. Stat results provided at this time as requested by referring provider. ACR TI-RADS RECOMMENDATION REFERENCE: Ultrasound-guided fine-needle aspiration, followup ultrasound, no further follow up. * TR1 (0 point) and TR2 (2 points): No FNA or follow up. * TR3 (3 points): FNA if more than or equal to 2.5 cm in maximum dimension, followup ultrasound in 1, 3 and 5 years if 1.5 to 2.4 cm in maximum dimension. * TR4 (4-6 points): FNA if more than or equal to 1.5 cm in maximum dimension, followup ultrasound in 1, 2, 3 and 5 years if 1 to 1.4 cm in maximum dimension. * TR5 (more than or equal to 7 points): FNA if more than or equal to 1 cm in maximum dimension, followup ultrasound every year for 5 years if 0.5 to 0.9 cm in maximum dimension. * TR3, TR4 or TR5 nodules that are below the size threshold for followup receive no follow up. Electronically signed by: Shasta Alegria MD 08/24/2024 08:08 AM PERLA HERNANDEZ
== END 2024-08-23 14:14 | disposition home or self-care (01) ==
LOC: HO.HMGCX 14:13
PROVIDERS: PCP Internal Medicine; Visit Provider Internal Medicine
DX: E04.1 Nontoxic single thyroid nodule (principal)
CPT/HCPCS: 76536

== ENCOUNTER 2024-11-10 15:18 | Outpatient (AMB) | payer MEDICARE, SELFPAY ==
--- NOTE | 2024-11-10 15:19 | MHC.OFFVIS ---
Vital Signs 11/10/24 15:21 Height 5 ft Weight 182 lb 1.629 oz BMI 35.6 BP 114/68 Blood Pressure Location Rt brachial Position Sitting Pulse 82 Pulse Source Pulse Oximeter Pulse Oximetry (%) 97 Oxygen Delivery Method Room Air Intake Visit Reasons: Fecal Abnormalities Intake Note: NEW PATIENT for recall screening w/ positive cologuard. 2nd lifetime? Chief Complaint; Pt denies any GI concerns currently. [employer] Required: Yes [employer] Services: [employer] Offered & Declined Accompanied by: Self / Same As Patient Allergies atorvastatin Adverse Reaction (Intermediate, Verified 11/10/24 15:20) Swelling simvastatin Adverse Reaction (Intermediate, Verified 08/17/24 13:17) myalgia PFSH Medical History Abdominal pain Hyperlipidemia Furunculosis Annual physical exam Normal colonoscopy Mammogram normal Normal Pap smear Varicose vein of leg COPD (chronic obstructive pulmonary disease) Lung nodule Family History Father Cancer Mother No problems noted. Social History Housing: House Alcohol intake: current Alcohol intake frequency: a few times a week Patient Tobacco Use Status: Former Tobacco user e-Cigarette/Vaping Use: Never Used Second Hand Smoke Exposure: No service: No Current occupational status: employed Cognitive needs: No Hearing needs: No Vision needs: No Review of Systems Const Denies weight gain and Denies weight loss ENT Reports no additional complaints, Denies dysphagia and Denies odynophagia Card Reports no additional complaints Resp Reports no additional complaints GI Denies abdominal pain, Denies belching, Denies melena, Denies bloating, Denies change in bowel habits, Denies dysphagia, Denies excessive flatus, Denies dyspepsia, Denies heartburn, Denies diarrhea, Denies loose stools, Denies nausea, Denies odynophagia and Denies vomiting Reports no additional complaints Musc Reports no additional complaints Neuro Reports no additional complaints Psych Reports no additional complaints Endo Reports no additional complaints Physical Exam Vital Signs: Last Vital Signs Pulse 82 11/10/24 15:21 BP 114/68 11/10/24 15:21 Pulse Ox 97 11/10/24 15:21 Oxygen Delivery Method Room Air 11/10/24 15:21 BMI result Body Mass Index 35.6 Const General: healthy appearing and no acute distress Nutritional Appearance: well nourished and obese Orientation/consciousness: patient oriented x3 Resp Effort & Inspection: normal respiratory effort, able to speak in complete sentences, no tracheal deviation and symmetric chest movement Auscultation: clear to auscultation bilaterally Cardio Rate: regular rate GI Inspection: Yes normal to inspection, No distended and Yes obesity Palpation (GI): Soft to palpation, not firm, nontender and No hepatosplenomegaly present Auscultation: normal bowel sounds General: Yes no CVA tenderness Back/Spine/Pelvis Back: no CVA tenderness Skin General skin exam: elasticity normal, turgor normal and dry skin Neuro General: patient oriented x3 Psych Appearance: grossly normal Mental Status: mental status grossly normal Assessment & Plan Assessment & Plan (1) Screen for colon cancer: Code(s): Z12.11 - Encounter for screening for malignant neoplasm of colon Plan Patient denies any GI, cardiac or respiratory symptoms.? Denies any issues with anesthesia in the past.? Denies any history of sleep apnea.? No history infectious diseases in the past or present.? Not on any anticoagulation therapy.? No family or personal history of colon cancer or polyps.? Patient denies melena, hematochezia, unintentional weight loss or ribbon like stools.? Discussed at length the pre-procedure,? prep, diet & medications as well as what to expect prior, during and after the procedure.?? Stressed the importance of good bowel prep.? Recommended the use of Vaseline or Calmoseptine OTC & baby wipes with bowel movements to promote comfort.? ?Patient verbalizes understanding and agrees to plan of care.? She was given the opportunity to ask questions and all questions answered.? We will see her after the procedure.? Medications: New bisacodyl (Dulcolax (bisacodyl)) take 4 tabs at noon the day before your colonoscopy 20 mg (4 x 5 mg) PO ONCE 1 day 4 tabs 0RF Z12.11 - Encounter for screening for malignant neoplasm of colon polyethylene glycol 3350 (Miralax) As directed by gastroenterology department at [facility] 238 grams PO ONCE 238 grams 0RF Z12.11 - Encounter for screening for malignant neoplasm of colon Coding Level of Care Code New Pt Level 3 (30875) Diagnoses Screen for colon cancer Z12.11 Time Spent (min) 40 Comment 30 minutes spent with patient and additional 10 minute spent reviewing her records
[2024-11-10 15:21] VITALS: BP 114/68; PULSE 82; O2SAT 97; BMI 35.6
== END 2024-11-10 16:25 | disposition home or self-care (01) ==
PROVIDERS: PCP Internal Medicine; Visit Provider Nurse Practitioner Family
DX: Z01.818 Encounter for other preprocedural examination (principal); Z12.11 Encounter for screening for malignant neoplasm of colon; R19.5 Other fecal abnormalities
CPT/HCPCS: 99024

== ENCOUNTER → 2024-11-10 15:18 | Outpatient (BNVA) | payer MEDICARE, SELFPAY | PROVIDERS: PCP Internal Medicine; Visit Provider Nurse Practitioner Family | DX: Z01.818 Encounter for other preprocedural examination (principal); R19.5 Other fecal abnormalities | CPT/HCPCS: 99212 ==

== ENCOUNTER 2025-02-15 13:15 | Outpatient (REF) | payer MEDICARE, SELFPAY | END 2025-02-15 13:16 | disposition home or self-care (01) | LOC: HO.MAMMO 13:15 | PROVIDERS: PCP Internal Medicine; Visit Provider Internal Medicine | DX: Z12.31 Encounter for screening mammogram for malignant neoplasm of breast (principal) | CPT/HCPCS: 77063; 77067 ==

== ENCOUNTER → 2025-02-15 13:30 | Outpatient (BNV) | payer MEDICARE, SELFPAY | PROVIDERS: PCP Internal Medicine; Visit Provider Internal Medicine | DX: Z12.31 Encounter for screening mammogram for malignant neoplasm of breast (principal) | CPT/HCPCS: 77063; 77067 ==

== ENCOUNTER 2025-08-20 06:59 | Outpatient (REF) | payer MEDICARE, SELFPAY ==
[2025-08-20 11:35] LABS: MANUAL DIFF FLAG NO
[2025-08-20 11:46] LABS: Hematocrit 41.6 % (37.0-47.0); Hemoglobin 13.3 g/dl (12.0-16.0); Imm Gran Abs Auto 0.01 X10*3/uL (0.00-0.03); Imm Gran Pct Auto 0.2 % (0.0-0.4); Lymphocytes Absolute Auto 1.9 X10*3/uL (1.2-4.9); Mean Corpuscular HGB Conc 32.0 g/dl (31.0-35.0); Mean Corpuscular Hemoglobin 30.0 pg (27.0-33.0); Mean Corpuscular Volume 93.9 fL (80.0-98.0); NRBC Abs Auto 0.000 X10*3/uL (0.0-0.012); NRBC Pct Auto 0.0 /100WBC (0.0-0.2); Platelet Count 312 X10*3/uL (160-400); Red Blood Count 4.43 X10*6/uL (4.20-5.50); White Blood Count 5.9 X10*3/uL (4.8-10.8)
[2025-08-20 12:04] LABS: Alanine Aminotransferase 24 U/L (0-31); Albumin Level 4.1 g/dL (3.5-5.0); Alkaline Phosphatase 45 U/L (39-117); Anion Gap 10 (12-20); Aspartate Amino Transferase 30 U/L (5-31); Blood Urea Nitrogen 12 mg/dL (9-16); Calcium 9.2 mg/dL (8.4-10.2); Carbon Dioxide 28 mmol/L (22-29); Chloride 108 mmol/L (96-108); Cholesterol 179 mg/dL (<200); Estimated Glomerular Filt Rate > 60; HDL Cholesterol 49 mg/dL (>40); Potassium 4.6 mmol/L (3.3-5.1); Sodium 141 mmol/L (135-145); Total Protein 6.9 g/dL (6.5-8.0); Triglycerides 202 mg/dL (<150)
[2025-08-20 12:37] LABS: Microalbum/Creatinine Ratio Ur 5.6 ug/mg cr (<30)
== END 2025-08-20 07:00 | disposition home or self-care (01) ==
LOC: HO.HMGCLDS 06:59
PROVIDERS: PCP Internal Medicine; Visit Provider Internal Medicine
DX: Z00.00 Encounter for general adult medical examination without abnormal findings (principal); E04.1 Nontoxic single thyroid nodule; E78.5 Hyperlipidemia, unspecified; R73.9 Hyperglycemia, unspecified
CPT/HCPCS: 36415; 80053; 80061; 82043; 82570; 83036; 84443; 85025

== ENCOUNTER 2025-08-23 13:05 | Outpatient (AMB) | payer MEDICARE, SELFPAY ==
[2025-08-23 13:35] VITALS: BP 124/74; PULSE 86; RESP 16; TEMP 36.6; O2SAT 98; BMI 34.8
--- NOTE | 2025-08-23 13:35 | A.OFFPC_ITS ---
Vital Signs 08/23/25 13:35 Height 5 ft Weight 178 lb BMI 34.8 BP 124/74 Blood Pressure Location Lt brachial Position Sitting Respiration 16 Pulse 86 Pulse Source Pulse Oximeter Temp 97.8 F Temp Source Oral Pulse Oximetry (%) 98 Oxygen Delivery Method Room Air Intake Visit Reasons: Annual PE Intake Note: Pt is here today for PE. Allergies atorvastatin Adverse Reaction (Intermediate, Verified 08/23/25 13:36) Swelling simvastatin Adverse Reaction (Intermediate, Verified 08/23/25 13:36) myalgia Medication List - Last Reconciled 08/23/25 by Ghazala Aparicio MD bisacodyl (Dulcolax (bisacodyl)) 20 mg (4 x 5 mg) PO ONCE 1 day doxycycline hyclate 100 mg PO BID ezetimibe (Zetia) 10 mg PO DAILY polyethylene glycol 3350 (Miralax) 238 grams PO ONCE scopolamine base 1 patch transdermal Q3D PRN simvastatin 20 mg PO DAILY Tobacco use date assessed: 08/23/25 Fall risk assessment: No Falls in past year Last assessed Fall Risk: 08/23/25 Dental Screening Dental Screen Date: 08/23/25 Did you have a dental visit in the last 12 months?: Yes Did you have a dental problem in the last 6 months where you did not have access to dental care?: No Was dental information given to patient?: Patient has dentist HPI Annual PE HPI Details Pt presents for PE. Patient complains of skin infection on the face after she tried to squeeze a pimple. PFSH Medical History (Updated 08/23/25 @ 15:31 by Ghazala Aparicio MD) Abdominal pain Hyperlipidemia Furunculosis Annual physical exam Normal colonoscopy Mammogram normal Normal Pap smear Varicose vein of leg COPD (chronic obstructive pulmonary disease) Lung nodule Surgical History (Updated 08/23/25 @ 13:51 by CHELITA Crawford) No pertinent past surgical history Family History Father Cancer Mother No problems noted. Social History Housing: House Alcohol intake: current Alcohol intake frequency: a few times a week Patient Tobacco Use Status: Former Tobacco user e-Cigarette/Vaping Use: Never Used Second Hand Smoke Exposure: No service: No Current occupational status: employed Cognitive needs: No Hearing needs: No Vision needs: No Questionnaire PHQ-9 Over the last 2 weeks, how often have you been bothered by any of the following problems? 1. Little interest or pleasure in doing things: not at all 2. Feeling down, depressed, or hopeless: not at all 3. Trouble falling or staying asleep, or sleeping too much: not at all 4. Feeling tired or having little energy: not at all 5. Poor appetite or overeating: not at all 6. Feeling bad about yourself - or that you are a failure or have let yourself or your family down: not at all 7. Trouble concentrating on things, such as reading the newspaper or watching television: not at all 8. Moving or speaking so slowly that other people could have noticed. Or the opposite - being so fidgety or restless that you have been moving around a lot more than usual: not at all 9. Thoughts that you would be better off or of hurting yourself in some way: not at all Total score: 0 Depression Screening Interpretation: Negative Depression Screening Done: Yes Source: Developed by Drs. Jaskaran Brown, Helene June, Refugio Love and colleagues, with an educational buddy from [employer]. Thrive Questionnaire Date Thrive assessed: 01/21/24 AUDIT C Alcohol Use Questionnaire (AUDIT-C) 1. How often do you have a drink containing alcohol?: Monthly or less 2. How many drinks containing alcohol do you have on a typical day when you are drinking?: 1 or 2 3. How often do you have six or more drinks on one occasion?: Never Total Score: 1 CESAR-7 AMB Questionnaire CESAR-7 Date CESAR - 7 assessed: 08/23/25 Feeling nervous, anxious, or on edge: 0 = Not at all Not being able to stop or control worryin = Not at all Worrying too much about different things: 0 = Not at all Trouble relaxin = Not at all Being so restless that it is hard to sit still: 0 = Not at all Becoming easily annoyed or irritable: 0 = Not at all Feeling afraid as if something awful might happen: 0 = Not at all Total CESAR-7 score (0-4 normal; 5-9 mild; 10-14 moderate; 15-21 severe): 0 Source: Developed by Drs. Jaskaran Brown, Helene June, Refugio Love and colleagues, with an educational buddy from [employer]. Review of Systems Const All systems reviewed & are unremarkable except as noted in HPI and below Eyes Reports no additional complaints ENT Reports no additional complaints Card Reports no additional complaints Resp Reports no additional complaints GI Reports no additional complaints Reports no additional complaints Physical exam (Primary Care) Vital Signs: Last Vital Signs Temp 97.8 F 08/23/25 13:35 Pulse 86 08/23/25 13:35 Resp 16 08/23/25 13:35 BP 124/74 08/23/25 13:35 Pulse Ox 98 08/23/25 13:35 Oxygen Delivery Method Room Air 08/23/25 13:35 BMI result Body Mass Index 34.8 Tobacco/Smoking Status: Tobacco use Status Tobacco use date assessed 08/23/25 08/23/25 13:37 Patient Tobacco Use Status Former Tobacco user 08/23/25 13:35 e-Cigarette/Vaping Use Never Used 08/23/25 13:35 PHQ-9: PHQ-9 Score PHQ-9: Total score 0 08/23/25 13:37 Depression Screening Interpretation: Negative Thrive Assessment: Date of Thrive Assessment Date Thrive assessed 01/21/24 08/23/25 13:35 Const General: no acute distress HENMT Head: Yes normal to inspection Face and sinus: Yes normal facial exam Throat: Yes posterior oropharynx normal Eyes General: appearance normal, both eyes and all related structures Neck Neck: Yes no lymphadenopathy and Yes supple Resp Effort & Inspection: normal respiratory effort Auscultation: clear to auscultation bilaterally Cardio Rhythm: regular rhythm Heart sounds: S1 normal heart sound present and S2 normal heart sound present GI Inspection: Yes normal to inspection Palpation (GI): Soft to palpation Percussion: Yes normal to percussion Auscultation: normal bowel sounds Coding Level of Care Code Est Pt Prev Care >65y(29892) Diagnoses Hyperlipidemia E78.5 Hyperglycemia R73.9 COPD (chronic obstructive pulmonary disease) J44.9 Annual physical exam Z00.00 Positive colorectal cancer screening using Cologuard test R19.5 Lung nodule R91.1 Assessment & Plan Assessment & Plan (1) Hyperlipidemia: Code(s): E78.5 - Hyperlipidemia, unspecified Category: Medical Plan: Continue current medications (2) Hyperglycemia: Code(s): R73.9 - Hyperglycemia, unspecified Category: Medical Plan: A1c is 5.8, ADA diet increase exercise weight loss discussed with the patient follow-up in 6 months with a fasting labs before (3) COPD (chronic obstructive pulmonary disease): Comment: Mild, albuterol p.r.n. Code(s): J44.9 - Chronic obstructive pulmonary disease, unspecified Category: Medical Plan: Continue albuterol PRN (4) Annual physical exam: Code(s): Z00.00 - Encounter for general adult medical examination without abnormal findings Category: Medical Plan: Well-balanced diet regular physical activity discussed with the patient she is up-to-date with the mammogram (5) Positive colorectal cancer screening using Cologuard test: Comment: 06/2024 Code(s): R19.5 - Other fecal abnormalities Category: Medical Plan: Patient is [place] [facility] [place]. She will call GI to schedule an appointment (6) Lung nodule: Comment: last CT in September 2020, recheck in 6 months, repeat 10/2021 no change, f/u 1 year, f/u [facility] Code(s): R91.1 - Solitary pulmonary nodule Category: Medical Plan: Follow-up with [facility] pulmonology Orders: Orders Comprehensive [place]. Panel Fast 6 Months E78.5 - Hyperlipidemia, unspecified, R73.9 - Hyperglycemia, unspecified Hemoglobin A1c 6 Months E78.5 - Hyperlipidemia, unspecified, R73.9 - Hyperglycemia, unspecified Microalbumin, Random (w Creat) 6 Months E78.5 - Hyperlipidemia, unspecified, R73.9 - Hyperglycemia, unspecified Complete Blood Count Auto Diff 6 Months E78.5 - Hyperlipidemia, unspecified, R73.9 - Hyperglycemia, unspecified Lipid Panel 6 Months E78.5 - Hyperlipidemia, unspecified, R73.9 - Hyperglycemia, unspecified UA w Microscopic 6 Months E78.5 - Hyperlipidemia, unspecified, R73.9 - Hyperglycemia, unspecified Medications: New doxycycline hyclate 100 mg PO BID 14 tabs 0RF Refilled simvastatin 20 mg PO DAILY 90 tabs 3RF ezetimibe (Zetia) 10 mg PO DAILY 90 tabs 3RF
== END 2025-08-23 14:25 | disposition home or self-care (01) ==
LOC: HO.HMCC 13:05
PROVIDERS: PCP Internal Medicine; Visit Provider Internal Medicine
DX: Z00.00 Encounter for general adult medical examination without abnormal findings (principal); J44.9 Chronic obstructive pulmonary disease, unspecified; E78.5 Hyperlipidemia, unspecified; R73.9 Hyperglycemia, unspecified; R19.5 Other fecal abnormalities; R91.1 Solitary pulmonary nodule

== ENCOUNTER → 2025-08-23 13:05 | Outpatient (BNVA) | payer MEDICARE, SELFPAY | PROVIDERS: PCP Internal Medicine; Visit Provider Internal Medicine | DX: Z00.00 Encounter for general adult medical examination without abnormal findings (principal); R19.5 Other fecal abnormalities; E78.5 Hyperlipidemia, unspecified; R73.9 Hyperglycemia, unspecified; J44.9 Chronic obstructive pulmonary disease, unspecified; R91.1 Solitary pulmonary nodule | CPT/HCPCS: 96127; 99397 ==

== ENCOUNTER 2025-08-24 11:26 | Outpatient (REF) | payer MEDICARE, SELFPAY ==
--- NOTE | ~2025-08-24 | US_ITS ---
EXAMINATION: US THYROID CLINICAL INFORMATION: Goiter COMPARISON: August 23, 2024. TECHNIQUE: Linear transducer grayscale and color Doppler examination with attention to the region of the thyroid. FINDINGS: SIZE: Measurements of the thyroid lobes and nodules are given in sagittal, anteroposterior and transverse dimensions respectively. Right Thyroid Lobe: 4.7 x 1.1 x 1.4 cm, volume 3.6 mL. Previous: 5.0 x 1.3 x 1.6 cm, volume: 5.5 cc. Parenchyma: The gland echotexture is normal. Thyroid vascularity is normal. Left Thyroid Lobe: 4.4 x 0.94 x 1.5 cm, volume 3.4 mL. Previous: 3.9 x 1.0 x 1.4 cm volume: 2.9 cc. Parenchyma: The gland echotexture is normal. Thyroid vascularity is normal. Isthmus: 0.32 cm in maximum AP dimension. Previous: 0.20 cm. Estimated total number of nodules greater than or equal to 1 cm: 0. [employer] nodules are described as follows: 1. Location: The upper pole right lobe. Size: 0.63 x 0.42 x 0.6 cm, volume 0.09 mL. Previous: 0.7 x 0.4 x 0.6 cm, volume: 0.09 cc. Nodule characteristics: Composition: Spongiform (0). Echogenicity: Shape: Margins: Echogenic Foci: ACR TI-RADS total points: 0 ACR TI-RADS category: 1 NODES: No lymphadenopathy is seen in the tissue surrounding the thyroid gland. US/US thyroid IMPRESSION: ACR TI RADS category 1. ACR TI-RADS RECOMMENDATION REFERENCE: Ultrasound-guided fine-needle aspiration, followup ultrasound, no further follow up. * TR1 (0 point) and TR2 (2 points): No FNA or follow up. * TR3 (3 points): FNA if more than or equal to 2.5 cm in maximum dimension, followup ultrasound in 1, 3 and 5 years if 1.5 to 2.4 cm in maximum dimension. * TR4 (4-6 points): FNA if more than or equal to 1.5 cm in maximum dimension, followup ultrasound in 1, 2, 3 and 5 years if 1 to 1.4 cm in maximum dimension. * TR5 (more than or equal to 7 points): FNA if more than or equal to 1 cm in maximum dimension, followup ultrasound every year for 5 years if 0.5 to 0.9 cm in maximum dimension. * TR3, TR4 or TR5 nodules that are below the size threshold for followup receive no follow up. Electronically signed by: Reji Bennett MD 08/24/2025 12:00 PM PERLA HERNANDEZ
== END 2025-08-24 11:27 | disposition home or self-care (01) ==
LOC: HO.HMGCX 11:26
PROVIDERS: PCP Internal Medicine; Visit Provider Internal Medicine
DX: E04.1 Nontoxic single thyroid nodule (principal)
CPT/HCPCS: 76536

== ENCOUNTER → 2025-08-24 11:28 | Outpatient (BNV) | payer MEDICARE, SELFPAY | PROVIDERS: PCP Internal Medicine; Visit Provider Radiology Diagnostic Radiology | DX: E04.1 Nontoxic single thyroid nodule (principal) | CPT/HCPCS: 76536 ==